=== PATIENT | female | born 1995 | race Caucasian/White ===

== ENCOUNTER 2017-06-18 11:27 | Emergency (ER) | payer BC, OTHER ==
[~2017-06-18] VITALS: Ht 177.8 cm; Wt 82.0 kg
[2017-06-18] MEDS ORDERED: FLUO5DRO3 PO (12:45)
[2017-06-18 14:04] VITALS: BP 128/79
== END 2017-06-18 14:35 | disposition home or self-care (01) ==
LOC: ED 13:47
DX: S46.311A Strain of muscle, fascia and tendon of triceps, right arm, initial encounter (principal); X58.XXXA Exposure to other specified factors, initial encounter; Y93.89 Activity, other specified; Y99.8 Other external cause status; Y92.89 Other specified places as the place of occurrence of the external cause
CPT/HCPCS: 99284